=== PATIENT | male | born 1945 | race Caucasian/White ===

== ENCOUNTER 2017-10-19 00:39 | Emergency (ER) | payer MEDICARE, MEDICAID ==
[~2017-10-19] VITALS: Ht 182.9 cm; Wt 59.0 kg
[2017-10-19] MEDS ORDERED: AZITHROMYCIN 250 MG TABLET PO ONE (02:30)
[2017-10-19] MEDS ORDERED: ASPIRIN 325MG EC TABLET PO ONE (02:30)
[2017-10-19] MEDS ORDERED: PREDNISONE 20MG TABLET PO ONE (02:30)
[2017-10-19 03:25] VITALS: BP 91/58
== END 2017-10-19 04:00 | disposition home or self-care (01) ==
LOC: ER 00:39
DX: J40 Bronchitis, not specified as acute or chronic (principal); R91.8 Other nonspecific abnormal finding of lung field; J44.9 Chronic obstructive pulmonary disease, unspecified; F17.290 Nicotine dependence, other tobacco product, uncomplicated
CPT/HCPCS: 71010; 99284; 99406; J7512